=== PATIENT | female | born 1945 | race Caucasian/White ===

== ENCOUNTER 2018-09-17 12:24 | Inpatient (IN) | payer MEDICARE, MEDICAID ==
[~2018-09-17] VITALS: Ht 170.2 cm; Wt 63.0 kg
[2018-09-17 12:57] VITALS: BP 180/82
[2018-09-17] MEDS ORDERED: ALLERGY MED (13:01)
[2018-09-17 13:54] LABS: ABSOLUTE LYMPHOCYTES 0.9 thou/uL (0.8-5.3); ABSOLUTE MONOCYTES 0.3 thou/uL (0.0-1.2); ABSOLUTE NEUTROPHILS 3.6 thou/uL (1.6-8.1); BASOPHILS 0.7 %; EOSINOPHILS 0.7 %; HEMATOCRIT 43.6 % (37.0-47.0); HEMOGLOBIN 14.7 gm/dL (12.0-15.0); LYMPHOCYTES 19.3 %; MCH 30.4 pg (26.0-34.0); MCHC 33.7 g/dL (28.0-37.0); MCV 90.1 fL (80.0-100.0); MONOCYTES 5.8 %; MPV 10.3 fl. (7.2-11.1); NUCLEATED RBCS 0 /100WBC; PLATELET COUNT* 159 thou/uL (150-400); POLYS 73.5 %; RBC 4.84 mil/uL (4.20-5.00); RDW-CV 14.5 % (10.5-14.5); WBC 4.9 thou/uL (4.0-11.0)
[2018-09-17 14:03] LABS: ANION GAP 6 mmol/L (7-16); BUN 28 mg/dL (7-18); CALCIUM 9.1 mg/dL (8.5-10.1); CHLORIDE 106 mmol/L (98-107); CO2 30 mmol/L (21-32); GLUCOSE 91 mg/dL (70-99); POTASSIUM 3.6 mmol/L (3.5-5.1); SODIUM 142 mmol/L (136-145)
[2018-09-17 14:12] LABS: ALBUMIN 3.7 g/dL (3.4-5.0); ALKALINE PHOSPHATASE 53 U/L (46-116); NT-PRO BRAIN NAT PEPTIDE 3377 pg/mL (<300); SGOT 29 U/L (15-37); SGPT 24 U/L (30-65); TOTAL BILIRUBIN 0.8 mg/dL (<0.1-1.0); TOTAL PROTEIN 6.4 g/dL (6.4-8.2); TROPONIN-I LEVEL <0.06 ng/mL (<0.06)
[2018-09-17 14:13] LABS: APTT 27.2 Seconds (25.0-31.3); INR 1.1; PROTIME 11.4 Seconds (9.20-11.50)
--- NOTE | 2018-09-17 14:43 | EKG ---
[place] [address] ELECTROCARDIOGRAM REPORT Name: NORBERT CLARKE Room: [facility]#: [id number] Admission: 09/17/18 Attend Phys: Discharge: Date of : 45 Report #: [id number] THIS REPORT FOR: //name// 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: [place] MARCELO : 1945 Requested By: Charity Benson Order Number: [id number] MD: Bolivar Galicia Measurements Intervals [place] Rate: 82 P: TX: QRS: -15 QRSD: 127 T: 156 QT: 402 QTc: 470 Interpretive Statements Atrial fibrillation Left bundle branch block No previous ECG available for comparison Electronically Signed On 09-17-2018 14:42:50 PULLMAN CLERK by Bolivar Galicia [email or web address] <ELECTRONICALLY SIGNED> By: Bolivar Galicia MD, [facility] 09/17/18 1442 1259 [id number] Bolivar Galicia MD, FACC /EPI
[2018-09-17 18:10] VITALS: BP 147/83
[2018-09-17 18:11] VITALS: BP 131/80
[2018-09-17 20:45] VITALS: BP 124/94
[2018-09-18] VITALS: BP 170/72
[2018-09-18 04:00] VITALS: BP 143/82
[2018-09-18 08:01] VITALS: BP 154/90
[2018-09-18 11:47] VITALS: BP 147/87
--- NOTE | 2018-09-18 13:49 | 2DMMODE ---
[place] [address] 2 D/M-MODE ECHOCARDIOGRAM Name: NORBERT CLARKE Room: [address] IN [facility]#: [id number] Admission: 09/17/18 Attend Phys: Geo Gordon, Discharge: Date of : 45 Date of Service: 09/18/18 1349 Report #: [id number] THIS REPORT FOR: //name// APPROVED REPORT Study performed: 09/18/2018 10:56:26 EXAM: Comprehensive 2D, Doppler, and color-flow Echocardiogram Patient Location: In-Patient Room #: [facility] Status: routine BSA: 1.79 HR: 77 bpm BP: 154/90 mmHg Rhythm: Atrial Fibrillation Other Information Study Quality: Good Indications Atrial Fibrillation 2D Dimensions IVSd: 14.15 (7-11mm) LVOT Diam: 20.80 (18-24mm) LVDd: 42.48 mm PWd: 14.52 (7-11mm) Ascending Ao: 30.57 (22-36mm) LVDs: 27.80 (25-40mm) Aortic Root: 33.24 mm Volumes Left Atrial Volume (Systole) LA ESV Index: 129.90 mL/m2 Aortic Valve AI [place]: 1.38 m/s2 AI PHT: 700.43 ms Mitral Valve MV Mean Gr.: 5.26 mmHg TDI Medial E' Kendall.: 0.05 m/s Lateral E' Kendall.: 0.11 m/s Pulmonary Valve [address] [address] 2 D/M-MODE ECHOCARDIOGRAM Name: NORBERT CLARKE Room: [address] IN [facility]#: [id number] Admission: 09/17/18 Attend Phys: Geo Gordon, Discharge: Date of : 45 Date of Service: 09/18/18 1349 Report #: [id number] PV Peak Kendall.: 0.92 m/s PV Peak Gr.: 3.36 mmHg Tricuspid Valve RAP Estimate: 10.00 mmHg TR Peak Gr.: 24.75 mmHg RVSP: 34.00 mmHg PA Pressure: 34.00 mmHg Left Ventricle The left ventricle is normal size. moderate hypokinesis noted of the apex Moderate concentric left ventricular hypertrophy. Left ventricular systolic function is normal. The left ventricular ejection fraction is within the normal range. LVEF is 45-50%. This study is not technically sufficient to allow evaluation of the LV diastolic function due to atrial fibrillation. Right Ventricle The right ventricle is normal size. The right ventricular systolic function is normal. Atria Left atrium is severely dilated. The right atrium size is normal. Aortic Valve aortic valve sclerosis. Mild aortic regurgitation. Mild aortic stenosis. Mitral Valve Moderate mitral annular calcification. Mild mitral regurgitation. No evidence of mitral valve stenosis. Tricuspid Valve The tricuspid valve is normal in structure. Trace tricuspid regurgitation. estimated pa pressure 30 mm Hg Pulmonic Valve Pulmonic valve is not well visualized. There is no pulmonic valvular regurgitation. Great Vessels The aortic root is normal in size. IVC is dilated. Pericardium There is no pericardial effusion. <Conclusion> [place] [address] 2 D/M-MODE ECHOCARDIOGRAM Name: NORBERT CLARKE Room: [address] IN ..#: [id number] Admission: 09/17/18 Attend Phys: Geo Gordon, Discharge: Date of : 45 Date of Service: 09/18/181348 Report #: [id number] Moderate concentric left ventricular hypertrophy. LVEF is 45-50%. moderate hypokinesis noted of the apex Left atrium is severely dilated. Mild aortic regurgitation. Mild aortic stenosis. Mild mitral regurgitation. <ELECTRONICALLY SIGNED> By: Bolivar Galicia MD, FACC 09/18/181348 48 48 Bolivar Galicia MD, FACC /INF
[2018-09-18 15:39] VITALS: BP 126/72
[2018-09-18 20:15] VITALS: BP 162/69
[2018-09-18 21:27] LABS: URINE BILIRUBIN NEGATIVE (Negative); URINE BLOOD 2+ (Negative); URINE CLARITY CLEAR; URINE COLOR YELLOW; URINE GLUCOSE-RANDOM NEGATIVE (Negative); URINE KETONES NEGATIVE (Negative); URINE PROTEIN NEGATIVE (Negative); URINE SPECIFIC GRAVITY 1.015 (1.005-1.030); URINE UROBILINOGEN 0.2 E.U./dl (0.2-1.0)
[2018-09-18 21:36] LABS: URINE LEUKOCYTES-REFLEX 3+ (Negative); URINE NITRITE-REFLEX POSITIVE (Negative)
[2018-09-18 21:43] LABS: BACTERIA-REFLEX >30 Many /HPF (None Seen); CASTS None Seen /LPF (None Seen); CRYSTALS None Seen /LPF (None Seen); SQUAMOUS NONE SEEN /LPF (0-3); URINE RBC None Seen /HPF (0-2); URINE WBC-REFLEX 0-5 Rare /HPF (0-5)
[2018-09-19] VITALS: BP 125/78
[2018-09-19 04:00] VITALS: BP 118/63
[2018-09-19 08:00] VITALS: BP 143/72
--- NOTE | 2018-09-19 10:08 | CON ---
[address] [address] CONSULTATION Name: NORBERT CLARKE Room: [address] IN .R.#: [id number] Admission: 09/17/18 Attend Phys: Geo Gordon MD Discharge: Date of : 45 Report #: [id number] THIS REPORT FOR: //name// CC: Danielle Gordon DATE OF SERVICE: 09/18/2018 HISTORY OF PRESENT ILLNESS: The patient is a 72-year-old single white female who I was asked to see in the hospital today after she was noted to be in atrial fibrillation. The history is obtained from the patient who is somewhat confused. There are no family members available. There was a note from her nurse practitioner yesterday. The patient actually denies any significant complaints. She went to see her nurse practitioner yesterday for routine check. Apparently, she had no significant complaints. However, the patient was noted to be in atrial fibrillation. She was then sent to the Emergency Room and admitted. She denied any significant shortness of breath, chest pain, palpitations, syncope, fever, cough, fatigue and lightheadedness. PAST MEDICAL HISTORY: She has had a tubal ligation. She has had elevated blood pressure in the past. MEDICATIONS: She apparently is presently not on any medications. ALLERGIES: She has no known drug allergies. FAMILY HISTORY: No history of heart disease. SOCIAL HISTORY: She is . She recently apparently was moved out of her apartment, in with her daughter. However, daughter told the nursing staff that she cannot care for her mother. The patient quit smoking years ago. No alcohol abuse. REVIEW OF SYSTEMS: She denied a history of stroke, asthma, peptic ulcer disease, liver disease, kidney disease, cancer, chronic skin condition. PHYSICAL EXAMINATION: GENERAL: Revealed an elderly frail appearing female who is sitting in a chair. She could barely keep her head elevated. VITAL SIGNS: She had a blood pressure of 180/80, pulse is 100 and irregular. She is afebrile. HEENT: She was anicteric, conjunctiva pink. Mucous membranes appear dry. NECK: Veins do not appear distended. Neck was supple. CHEST: Clear to auscultation. CARDIOVASCULAR: Irregular rhythm, grade 2 holosystolic [place]ur [place] [address] CONSULTATION Name: NORBERT CLARKE Room: [address]#: [id number] Admission: 09/17/18 Attend Phys: Geo Gordon MD Discharge: Date of : 45 Report #: [id number] ABDOMEN: Soft. EXTREMITIES: Had no edema. Dorsalis pedis pulse 2+ bilaterally. SKIN: Cool and dry. NEUROLOGIC: She moved all extremities. PSYCHIATRIC: Mood, she appeared somewhat depressed. IMAGING: Her ECG on admission showed atrial fibrillation with a left bundle branch block. Her workup in the Emergency Room, she had a portable chest x-ray that showed cardiomegaly. CT scan of the chest using a PE protocol showed cardiomegaly, otherwise unremarkable. No pulmonary embolus. LABORATORY DATA: Sodium 142 and creatinine 1.0. Liver function studies were normal. Troponin 0.06. Albumin 3.7. BNP 3377. TSH 1.7. White blood cell count 4.9 and hemoglobin 14.7. IMPRESSION AND RECOMMENDATIONS: 1. Atrial fibrillation. Onset unclear. I would not recommend attempts at cardioversion. I would aim for rate control only. At this time, we will start oral diltiazem. The patient does not appear to be a very good candidate for anticoagulation. 2. Hypertension. We will start calcium man. 3. Dementia. 4. Previous tobacco abuse. <ELECTRONICALLY SIGNED> By: Bolivar Galicia MD, FACC 09/19/18 1008 0948 [id number] Galicia MD, FACC /nt
[2018-09-19 11:45] LABS: ABSOLUTE EOSINOPHILS 0.1 thou/uL (0.0-0.7); ABSOLUTE MONOCYTES 0.4 thou/uL (0.0-1.2); ABSOLUTE NEUTROPHILS 3.1 thou/uL (1.6-8.1); BASOPHILS 0.4 %; EOSINOPHILS 2.9 %; HEMATOCRIT 39.4 % (37.0-47.0); HEMOGLOBIN 13.3 gm/dL (12.0-15.0); LYMPHOCYTES 22.2 %; MCH 30.4 pg (26.0-34.0); MCHC 33.8 g/dL (28.0-37.0); MCV 90.1 fL (80.0-100.0); MONOCYTES 7.9 %; MPV 9.9 fl. (7.2-11.1); NUCLEATED RBCS 0 /100WBC; PLATELET COUNT* 131 thou/uL (150-400); POLYS 66.6 %; RBC 4.37 mil/uL (4.20-5.00); RDW-CV 14.2 % (10.5-14.5); WBC 4.6 thou/uL (4.0-11.0)
[2018-09-19 11:57] LABS: CALCIUM 8.6 mg/dL (8.5-10.1); CREATININE 0.8 mg/dL (0.6-1.3); POTASSIUM 3.7 mmol/L (3.5-5.1)
[2018-09-19 12:33] VITALS: BP 116/97
[2018-09-19 16:12] VITALS: BP 124/67
[2018-09-19 19:50] VITALS: BP 128/88
[2018-09-20] VITALS (7 sets, daily range): BP systolic 127–175; BP diastolic 44–92
[2018-09-21 04:00] VITALS: BP 175/91
[2018-09-21 08:00] VITALS: BP 164/86
[2018-09-21 12:00] VITALS: BP 118/72
[2018-09-21] MEDS ORDERED: ASPIRIN325 PO (13:24)
[2018-09-21] MEDS ORDERED: PRINIVIL10 MG PO (13:25)
[2018-09-21] MEDS ORDERED: DULCOLAX5 MG PO (13:25)
[2018-09-21] MEDS ORDERED: PHENERGAN 25 MG25 M1 PO (13:26)
[2018-09-21] MEDS ORDERED: TYLENOL325 MG PO (13:27)
[2018-09-21] MEDS ORDERED: TOPROL XL25 MG PO (13:27)
[2018-09-21] MEDS ORDERED: CEFPODOXIME PR200 M1 PO (13:29)
== END 2018-09-21 15:17 | DRG 291 ==
LOC: M.ERS 12:24 → M.2W 16:26 → M.TBA-ER 16:26 → M.2W 18:17
PROVIDERS: Family Medicine; Personal Emergency Response Attendant; ADMIT Internal Medicine
DX: I13.0 Hypertensive heart and chronic kidney disease with heart failure and stage 1 through stage 4 chronic kidney disease, or unspecified chronic kidney disease (principal); I50.21 Acute systolic (congestive) heart failure; G93.41 Metabolic encephalopathy; F03.90 Unspecified dementia, unspecified severity, without behavioral disturbance, psychotic disturbance, mood disturbance, and anxiety; I35.0 Nonrheumatic aortic (valve) stenosis; I48.91 Unspecified atrial fibrillation; N18.3 Chronic kidney disease, stage 3 (moderate); R53.81 Other malaise; F79 Unspecified intellectual disabilities; Z79.2 Long term (current) use of antibiotics; Z79.82 Long term (current) use of aspirin; Z79.899 Other long term (current) drug therapy; Z87.891 Personal history of nicotine dependence

== ENCOUNTER 2018-10-17 09:07 | Inpatient (IN) | payer MEDICARE, MEDICAID ==
[~2018-10-17] VITALS: Ht 149.9 cm; Wt 60.5 kg
[~2018-10-17 09:07] MED LIST: ALLERGY MED; ASPIRIN325 PO; CEFPODOXIME PR200 M1 PO; DULCOLAX5 MG PO; LOPRESSOR50 PO; PHENERGAN 25 MG25 M1 PO; PRINIVIL10 MG PO; TYLENOL325 MG PO
[2018-10-17 09:14] VITALS: BP 114/73
[2018-10-17] MEDS ORDERED: BENADRYL25 MG PO (09:21)
[2018-10-17] MEDS ORDERED: MELATONIN5 M1 PO (09:22)
[2018-10-17] MEDS ORDERED: MI ACID SUSPEN355 ML PO (09:23)
[2018-10-17] MEDS ORDERED: KEFLEX500 M1 PO (09:24)
[2018-10-17 09:25] LABS: ABSOLUTE BASOPHILS 0.1 thou/uL (0.0-0.2); ABSOLUTE EOSINOPHILS 0.2 thou/uL (0.0-0.7); ABSOLUTE LYMPHOCYTES 1.9 thou/uL (0.8-5.3); ABSOLUTE NEUTROPHILS 11.2 thou/uL (1.6-8.1); BASOPHILS 0.7 %; EOSINOPHILS 1.2 %; HEMATOCRIT 44.7 % (37.0-47.0); LYMPHOCYTES 13.2 %; MCH 30.1 pg (26.0-34.0); MCHC 33.4 g/dL (28.0-37.0); MCV 90.1 fL (80.0-100.0); MPV 10.8 fl. (7.2-11.1); NUCLEATED RBCS 0 /100WBC; PLATELET COUNT* 238 thou/uL (150-400); POLYS 77.9 %; RBC 4.97 mil/uL (4.20-5.00); RDW-CV 14.1 % (10.5-14.5); WBC 14.3 thou/uL (4.0-11.0)
[2018-10-17 09:31] LABS: ANION GAP 9 mmol/L (7-16); BUN 22 mg/dL (7-18); CALCIUM 9.4 mg/dL (8.5-10.1); CHLORIDE 102 mmol/L (98-107); CO2 29 mmol/L (21-32); CREATININE 0.9 mg/dL (0.6-1.3); GLUCOSE 134 mg/dL (70-99); POTASSIUM 4.1 mmol/L (3.5-5.1); SODIUM 140 mmol/L (136-145)
[2018-10-17 09:42] LABS: ALBUMIN 3.1 g/dL (3.4-5.0); ALKALINE PHOSPHATASE 99 U/L (46-116); NT-PRO BRAIN NAT PEPTIDE 5366 pg/mL (<300); SGOT 16 U/L (15-37); SGPT 15 U/L (30-65); TOTAL BILIRUBIN 0.7 mg/dL (<0.1-1.0); TOTAL PROTEIN 7.1 g/dL (6.4-8.2); TROPONIN-I LEVEL <0.06 ng/mL (<0.06)
[2018-10-17 10:00] LABS: URINE BLOOD 2+ (Negative); URINE CLARITY CLEAR; URINE COLOR YELLOW; URINE GLUCOSE-RANDOM NEGATIVE (Negative); URINE KETONES NEGATIVE (Negative); URINE LEUKOCYTES-REFLEX NEGATIVE (Negative); URINE NITRITE-REFLEX NEGATIVE (Negative); URINE PROTEIN TRACE (Negative); URINE SPECIFIC GRAVITY >= 1.030 (1.005-1.030)
[2018-10-17 10:06] LABS: ICTOTEST (BILI CONFIRMATORY) Negative (Negative); URINE BILIRUBIN 1+ (Negative)
[2018-10-17 10:10] LABS: APTT 31.2 Seconds (25.0-31.3); INR 1.1; PROTIME 10.8 Seconds (9.20-11.50)
[2018-10-17 10:11] LABS: CRYSTALS None Seen /LPF (None Seen); MUCUS 0-3 Light strn/LPF (None Seen); SQUAMOUS 0-3 Few /LPF (0-3)
[2018-10-17 10:12] LABS: BACTERIA-REFLEX 1-9 Few /HPF (None Seen); HYALINE CASTS 0-3 Few /LPF (None Seen); URINE RBC 0-2 Rare /HPF (0-2); URINE WBC-REFLEX 0-5 Rare /HPF (0-5)
--- NOTE | 2018-10-17 11:05 | NUR ---
DILTIAZEM TITRATED TO 5 MLS/HR PER DR PIERCE'S VERBAL ORDERS DUE TO PT'S BP DROPPING TO 96/52.
[2018-10-17 15:01] VITALS: BP 129/66
[2018-10-17 15:30] VITALS: BP 106/69
[2018-10-17 20:00] VITALS: BP 133/84
[2018-10-18] VITALS: BP 117/71
--- NOTE | 2018-10-18 01:18 | NUR ---
ASSUMED PT CARE AT 1930. ASSESSMENT COMPLETED CHARTED. ABLE TO MAKE SOME NEEDS KNOWN. PT C/O CRAMPS IN HER LEGS AND GAVE PRN PAIN MEDICATION. PT RESTING IN BED AT THIS TIME. STATES THAT SHE DOESNT NEED ANYONES HELP AND THAT SHE DOESNT WANT TO BE HERE AT THIS HOSPITAL. WILL CONTINUE TO MONITOR.
[2018-10-18 04:00] VITALS: BP 120/78
[2018-10-18 05:28] LABS: HEMATOCRIT 40.4 % (37.0-47.0); HEMOGLOBIN 13.7 gm/dL (12.0-15.0); MCH 30.2 pg (26.0-34.0); MCHC 33.9 g/dL (28.0-37.0); MCV 89.1 fL (80.0-100.0); MPV 10.5 fl. (7.2-11.1); RBC 4.53 mil/uL (4.20-5.00); RDW-CV 13.8 % (10.5-14.5); WBC 9.2 thou/uL (4.0-11.0)
[2018-10-18 06:31] LABS: CREATININE 0.7 mg/dL (0.6-1.3); POTASSIUM 4.2 mmol/L (3.5-5.1)
--- NOTE | 2018-10-18 07:45 | NUR ---
RECEIVED REPORT. ASSUMED CARE OF PT AT 0730. VSS. CARDIAC MONTIORING IN PLACE AFIB. AM ASSESSMENT AND VITALS COMPELTED CHARTED. PT AWAKE AND ALERT. PT IS CONFUSED. PT ASSISTED UP TO EAT FOR BREAKFAST THIS AM. PT DOES NOT HAVE IV ACCESS SHE PULLED OUT IV LAST NIGHT. PT DENIES ANY PAIN OR DISCOMFORT THIS AM. CALL LIGHT IS WITHIN REACH. WILL CONTINUE TO MOTNIOR FOR DURAITON OF SHIFT.
[2018-10-18 08:07] VITALS: BP 113/74
--- NOTE | 2018-10-18 10:01 | EKG ---
[place] [address] ELECTROCARDIOGRAM REPORT Name: NORBERT CLARKE Room: [address] ADM IN [facility]#: [id number] Admission: 10/17/18 Attend Phys: Patricia Damico MD Discharge: Date of : 45 Report #: [id number] THIS REPORT FOR: //name// [facility] ED Test Date: 2018-10-17 Test Time: 09:20:16 Pat Name: NORBERT CLARKE Department: Room: [facility] Gender: F Picker: [place] : 1945 Requested By: Lowell Li Order Number: [id number] MD: Bolivar Galicia Measurements Intervals [place] Rate: 128 P: 0 MS: 96 QRS: -8 QRSD: 145 T: 164 QT: 315 QTc: 460 Interpretive Statements atrial fibrillation Multiple premature complexes, vent Left bundle branch block Compared to ECG 09/17/2018 12:59:48 pvc's now noted Electronically Signed On 10-18-2018 10:01:42 SURGICAL MANAGER by Bolivar Galicia [email or web address] <ELECTRONICALLY SIGNED> By: Bolivar Galicia MD, [facility] 10/18/18 1001 9 9 Bolivar Galicia MD, [facility] /EPI
[2018-10-18 12:35] VITALS: BP 91/55
[2018-10-18 16:19] VITALS: BP 148/85
--- NOTE | 2018-10-18 16:49 | NUR ---
VSS. CARDIAC MONITORING IN PLACE WITH NO CHANGES THIS SHIFT. PT PROGRESSING TOWARDS GOALS. PT REMAINS AWAKE AND ALWERT BUT CONFUSED. PT ORIETNED TO SELF ONLY. NO IV ACCESS-OKAY WITH DR. KAUR TO LEAVE IV OUT. PT UP TO CHAIR WITH ASSISTANCE THIS SHIFT. PT DNEIES ANY PAIN OR DISCOMFORT THIS SHIFT. PT INFORMED OF PLAN OF CARE. CALL LIGHT IS WITHIN REACH. BED ALARM ON FOR PT SAFETY. WILL CONTINUE TO MOTNIOR.
[2018-10-18 20:00] VITALS: BP 84/54
[2018-10-19 00:07] VITALS: BP 116/68
--- NOTE | 2018-10-19 03:44 | NUR ---
ASSUMED PT CARE AT 1930. ASSESSMENT COMPLETED CHARTED. ABLE TO MAKE SOME NEEDS KNOWN. UP WITH ASSIST TO BSC. RESTING IN BED AT THIS TIME. NO C/O PAIN OR DISCOMFORT. VSS. WILL CONTINUE TO MONITOR.
[2018-10-19 03:49] VITALS: BP 136/80
--- NOTE | 2018-10-19 07:15 | NUR ---
ASSUMED CARE OF PT ASSESSED AND DOCUMENTED. PT IS TRACING AFIB HR 75 ON CATDIAC MONITER. SHE IS ALERT TO SELF AND STATE'S NO PAIN. SHE IS ON ROOM AIR. PT IS ON FALL PRECAUTIONS PER FACILITY PROTOCOL. VSS WNL. PT IS AFEBRILE. BED IS IN LOW POSITION CALL LIGHT IS IN REACH. WM.
[2018-10-19 08:00] VITALS: BP 140/86
--- NOTE | 2018-10-19 12:00 | NUR ---
RECEIVED REPORT FROM MARGE ROBLEDO. PT. ASSESSMENT REVIEWED WITH NO CHANGES NOTED. PT. UP TO CHAIR AND AMBULATED TO BATHROOM WITH ASSISTANCE. PT. TO DC BACK TO SNF TODAY. ASKED PT. IF SHE WAS OKAY WITH THAT SHE DID NOT KNOW THE NAME OF FACILITY, BUT SAID SHE LIKED IT AT THE PLACE SHE WAS AT GETTING REHAB AND WANTED TO GO BACK. FALL PRECAUTIONS REMAIN IN PLACE. WILL CONTINUE WITH PLAN OF CARE.
[2018-10-19 12:25] VITALS: BP 104/60
--- NOTE | 2018-10-19 12:38 | NUR ---
Pt is A&O. Resides at [facility] and has been skilled. Plan to return today, faxed dc orders and referral. Facility to picking tech at 230pm. Chart copied. Nurse report number provided, [phone]. Updated Pt's dtr.
[2018-10-19 13:36] VITALS: BP 104/60
--- NOTE | 2018-10-19 14:50 | NUR ---
DC ORDERS RECIEVED. MONITOR REMOVED, PT HAD NO IV ACCESS. REPORT CALLED TO ONI AT [facility]. PT. LEFT VIA WHEELCHAIR VAN.
--- NOTE | 2018-10-19 16:44 | CON ---
[address] [address] CONSULTATION Name: NORBERT CLARKE Room: [address] IN M.R.#: [id number] Admission: 10/17/18 Attend Phys: Patricia Damico MD Discharge: 10/19/18 Date of : 45 Report #: [id number] THIS REPORT FOR: //name// CC: Elida Damico DATE OF SERVICE: 10/18/2018 HISTORY OF PRESENT ILLNESS: The patient is a 72-year-old white female who I was asked to see in the hospital today after she was noted to be in atrial fibrillation. The patient is a resident of a senior living. There are no family members available. The patient is confused at this time. She was actually admitted here to [facility] a month ago after she was noted to be in AFib. At that time, she was found to be in AFib. I recommended rate control only. She has not felt to be a very good candidate for anticoagulation. She has a history of confusion and had been living with her daughter. However, after she was discharged, she was placed in a senior living. The patient was brought back to the Emergency Room yesterday. The patient had quit eating and had been incontinent. She refused to get out of bed. She was brought to the hospital and noted to be in atrial fibrillation. I was asked to see her for further evaluation and treatment. The patient herself denies any chest pain, shortness of breath, palpitations, or lightheadedness. PAST MEDICAL HISTORY: Significant for tubal ligation. She has had elevated blood pressure at the senior living. MEDICATIONS: Consists of aspirin, lisinopril, metoprolol, Phenergan as needed. ALLERGIES: She has no known drug allergies. FAMILY HISTORY: No history of heart disease. SOCIAL HISTORY: She is , lives in a senior living. Quit smoking years ago. No alcohol abuse. REVIEW OF SYSTEMS: There is no history of stroke, asthma, peptic ulcer disease, liver disease, kidney disease, cancer, chronic skin condition. PHYSICAL EXAMINATION: GENERAL: Revealed an elderly female, lying in bed. She appeared in no distress. VITAL SIGNS: Show blood pressure 120/80, pulse is 90. She is afebrile. HEENT: She was anicteric, conjunctiva pink. Mucous membranes appear dry. NECK: Veins do not appear distended. CHEST: Revealed coarse breath sounds. CARDIOVASCULAR: Irregular rhythm with a grade 4 [place] [address] CONSULTATION Name: NORBERT CLARKE Edgar Room: [address]#: [id number] Admission: 10/17/18 Attend Phys: Patricia Damico MD Discharge: 10/19/18 Date of : 45 Report #: [id number] apex. ABDOMEN: Soft. EXTREMITIES: Had no edema. Dorsalis pedis pulse 2+ bilaterally. SKIN: Warm and dry. NEUROLOGIC: She is very slow moving. She is oriented to place, but did not know the time. LABORATORY DATA: The patient had an echocardiogram last month showed left ventricular hypertrophy, ejection fraction 50%, left atrial enlargement, mild aortic stenosis, mild mitral regurgitation. Her workup last night, she had a CT scan of the head performed that showed no acute abnormality, normal pressure hydrocephalus. There was a possibility of small vessel disease. She actually had a chest x-ray done last month that showed cardiomegaly, no pulmonary edema. Her lab work, creatinine 0.7. Liver function studies were normal. TSH last month was 1.7. White blood cell count 4.5, hemoglobin 13.7. IMPRESSION AND RECOMMENDATIONS: 1. Atrial fibrillation. Noted to be chronic. I would aim for rate control. The patient has been on metoprolol 25 mg twice a day. I would increase to 50 mg twice a day. 2. Hypertension. The patient is on a beta man and YESSENIA inhibitor. 3. Dementia. 4. Mild aortic stenosis. 5. Previous tobacco abuse. <ELECTRONICALLY SIGNED> By: Bolivar Galicia MD, [facility] 10/19/18 1644 0737 [id number] Galicia MD, FAC /nt
== END 2018-10-19 14:54 | DRG 70 ==
LOC: M.ERS 09:07 → M.TBA-ER 10:46 → M.2W 10:46
PROVIDERS: Emergency Medicine Emergency Medical Services; ADMIT Internal Medicine
DX: G93.41 Metabolic encephalopathy (principal); R65.11 Systemic inflammatory response syndrome (SIRS) of non-infectious origin with acute organ dysfunction; I50.22 Chronic systolic (congestive) heart failure; I48.2 Chronic atrial fibrillation; I35.0 Nonrheumatic aortic (valve) stenosis; I11.0 Hypertensive heart disease with heart failure; F03.90 Unspecified dementia, unspecified severity, without behavioral disturbance, psychotic disturbance, mood disturbance, and anxiety; Z79.82 Long term (current) use of aspirin; Z79.899 Other long term (current) drug therapy